=== PATIENT | female | born 1995 | race Two or more races ===

== ENCOUNTER → 2018-04-08 | Outpatient (CLI) | payer OTHER | END | disposition home or self-care (01) | LOC: RAD 10:40 | PROVIDERS: ATTEND Emergency Medicine | DX: R10.9 Unspecified abdominal pain (principal) | CPT/HCPCS: 76705 ==

== ENCOUNTER → 2018-09-22 | Outpatient (CLI) | payer OTHER | END | disposition home or self-care (01) | LOC: CFH 08:28 | PROVIDERS: ATTEND Family Medicine | DX: M79.661 Pain in right lower leg (principal) ==

== ENCOUNTER 2019-01-24 15:29 | Emergency (ER) | payer OTHER ==
[~2019-01-24] VITALS: Ht 160 cm; Wt 116.9 kg
[2019-01-24 16:37] VITALS: BP 111/70
== END 2019-01-24 17:57 | disposition home or self-care (01) ==
LOC: ED 17:51
DX: R07.2 Precordial pain (principal); M79.89 Other specified soft tissue disorders; R11.0 Nausea
CPT/HCPCS: 36415; 71045; 80048; 82040; 84484; 85025; 85379; 93005; 99284

== ENCOUNTER 2019-05-09 08:19 | Outpatient (CLI) | payer OTHER | END 2019-05-09 23:59 | disposition home or self-care (01) | LOC: CFH 08:19 | PROVIDERS: ATTEND Nurse Practitioner Family | DX: G43.909 Migraine, unspecified, not intractable, without status migrainosus (principal) | CPT/HCPCS: 70450 ==

== ENCOUNTER → 2019-08-08 | Outpatient (CLI) | payer OTHER | END | disposition home or self-care (01) | LOC: CFH 13:24 | PROVIDERS: ATTEND Family Medicine | DX: R10.13 Epigastric pain (principal) | CPT/HCPCS: 76700 ==

== ENCOUNTER 2019-09-10 19:48 | Emergency (ER) | payer OTHER ==
[~2019-09-10] VITALS: Ht 160 cm; Wt 112.8 kg
[2019-09-10 19:54] VITALS: BP 130/85
[2019-09-10] MEDS ORDERED: SODIUM CHLORIDE FLUSH 10ML SYR IVF ONE (20:30)
[2019-09-10] MEDS ORDERED: MAALOX/HYOSCYAMINE/LIDOCAINE 45 ML BTL PO ONE (20:30)
[2019-09-10] MEDS ORDERED: MAALOX/HYOSCYAMINE/LIDOCAINE 45 ML BTL ONE (20:44)
[2019-09-10 20:48] LABS: ALANINE AMINOTRANSFERASE 30 U/L (12-78); ALBUMIN 3.3 g/dL (3.4-5.0); ANION GAP 9 mmol/L (5-15); CHLORIDE 108 mmol/L (98-107); CREATININE 0.86 mg/dL (0.55-1.02)
[2019-09-10 20:50] LABS: ALKALINE PHOSPHATASE 77 U/L (45-117); BILIRUBIN,TOTAL 0.4 mg/dL (0.2-1.0); TOTAL PROTEIN 7.3 g/dL (6.4-8.2)
[2019-09-10 20:54] LABS: BASOPHILS # (AUTO) 0.05 x10^3/uL (0-0.1); BASOPHILS % (AUTO) 1 % (0-1); EOSINOPHILS # (AUTO) 0.07 x10^3/uL (0-0.4); EOSINOPHILS % (AUTO) 1 % (1-7); LYMPHOCYTES # (AUTO) 2.56 x10^3/uL (1-3.4); LYMPHOCYTES % (AUTO) 35 % (22-44); MD NO; MEAN CORPUSCULAR HEMOGLOBIN 28.2 pg (27.0-34.8); MEAN CORPUSCULAR HGB CONC 33.3 g/dL (32.4-35.8); MEAN CORPUSCULAR VOLUME 84.6 fL (80-100); MEAN PLATELET VOLUME 8.8 fL (7.4-10.4); MONOCYTES % (AUTO) 8 % (2-9); NEUTROPHILS # (AUTO) 4.05 x10^3/uL (1.8-6.8); NEUTROPHILS % (AUTO) 55 % (42-75); PLATELET COUNT 248 x10^3/uL (130-400); RED BLOOD COUNT 4.83 x10^6/uL (3.82-5.3); RED CELL DISTRIBUTION WIDTH 13.2 % (9.6-15.2)
== END 2019-09-10 21:32 ==
LOC: ED 20:48
DX: K29.00 Acute gastritis without bleeding (principal); K80.20 Calculus of gallbladder without cholecystitis without obstruction; M54.9 Dorsalgia, unspecified; R10.10 Upper abdominal pain, unspecified
CPT/HCPCS: 36415; 76700; 80053; 83690; 85025; 99284

== ENCOUNTER 2019-09-30 21:12 | Emergency (ER) | payer OTHER ==
[~2019-09-30] VITALS: Ht 162.6 cm; Wt 112.0 kg
[2019-09-30] MEDS ORDERED: MORPHINE SULFATE 4 MG/ML, 1ML ONE (21:28)
[2019-09-30] MEDS ORDERED: ONDANSETRON 2MG/ML, 2ML IVPush ONE (21:30)
[2019-09-30] MEDS ORDERED: MORPHINE SULFATE 4 MG/ML, 1ML IVPush PRN (21:30)
[2019-09-30] MEDS ORDERED: SODIUM CHLORIDE FLUSH 10ML SYR IVF ONE (21:30)
[2019-09-30 21:42] LABS: BASOPHILS # (AUTO) 0.05 x10^3/uL (0-0.1); BASOPHILS % (AUTO) 0 % (0-1); EOSINOPHILS # (AUTO) 0.17 x10^3/uL (0-0.4); EOSINOPHILS % (AUTO) 2 % (1-7); LYMPHOCYTES # (AUTO) 3.04 x10^3/uL (1-3.4); LYMPHOCYTES % (AUTO) 26 % (22-44); MD NO; MEAN CORPUSCULAR HEMOGLOBIN 27.6 pg (27.0-34.8); MEAN CORPUSCULAR VOLUME 83.8 fL (80-100); MEAN PLATELET VOLUME 8.3 fL (7.4-10.4); MONOCYTES # (AUTO) 1.05 x10^3/uL (0.2-0.8); MONOCYTES % (AUTO) 9 % (2-9); NEUTROPHILS # (AUTO) 7.38 x10^3/uL (1.8-6.8); NEUTROPHILS % (AUTO) 63 % (42-75); PLATELET COUNT 306 x10^3/uL (130-400); RED BLOOD COUNT 4.84 x10^6/uL (3.82-5.3); RED CELL DISTRIBUTION WIDTH 13.5 % (9.6-15.2)
--- NOTE | 2019-09-30 21:44 | NUR ---
PT TO US AT THIS TIME.
[2019-09-30 21:48] LABS: CULTURE INDICATED? YES; MICROSCOPIC INDICATED
[2019-09-30 21:55] LABS: ALANINE AMINOTRANSFERASE 25 U/L (12-78); ANION GAP 4 mmol/L (5-15); CALCIUM 8.6 mg/dL (8.5-10.1); CHLORIDE 108 mmol/L (98-107); CREATININE 0.76 mg/dL (0.55-1.02)
[2019-09-30 21:59] LABS: ALKALINE PHOSPHATASE 94 U/L (45-117); TOTAL PROTEIN 7.4 g/dL (6.4-8.2)
[2019-09-30 22:00] LABS: BILIRUBIN,TOTAL < 0.1 mg/dL (0.2-1.0)
[2019-09-30 22:57] VITALS: BP 121/63
[2019-10-01] MEDS ORDERED: OMNIPAQUE 350 MG/ML, 100ML BOTTLE ONE (00:39)
== END 2019-09-30 23:54 | disposition home or self-care (01) ==
LOC: ED 21:30
DX: R10.11 Right upper quadrant pain (principal); K80.20 Calculus of gallbladder without cholecystitis without obstruction; K29.00 Acute gastritis without bleeding; R11.0 Nausea
CPT/HCPCS: 36415; 74177; 76700; 80053; 81001; 83690; 84703; 85025; 87086; 96374; 99285; J2270; Q9967

== ENCOUNTER 2019-11-16 11:15 | Outpatient (CLI) | payer OTHER ==
[2019-11-16] MEDS ORDERED: HYDR-3237 PO (12:44)
[2019-11-16] MEDS ORDERED: ERGO500017 PO (12:44)
[2019-11-16] MEDS ORDERED: NAPR-758 PO (12:44)
[2019-11-16] MEDS ORDERED: PANT40TA3 PO (12:44)
== END 2019-11-16 23:59 | disposition home or self-care (01) ==
LOC: STAR 11:15
PROVIDERS: ATTEND Surgery
DX: Z01.818 Encounter for other preprocedural examination (principal); Z11.59 Encounter for screening for other viral diseases
CPT/HCPCS: C9803; U0001

== ENCOUNTER 2019-11-20 09:09 | Day surgery (SDC) | payer OTHER ==
[~2019-11-20] VITALS: Ht 161.3 cm; Wt 112.2 kg
[~2019-11-20 09:09] MED LIST: ERGO500017 PO; HYDR-3237 PO; NAPR-758 PO; PANT40TA3 PO
[2019-11-20] MEDS ORDERED: LIDOCAINE-MPF 1%, 2ML INFIL STA (09:25)
[2019-11-20] MEDS ORDERED: LACTATED RINGERS 1,000 ML IV SCH (09:25)
[2019-11-20] MEDS ORDERED: CHLORHEXIDINE 15 ML UDC MM STA (09:25)
[2019-11-20 09:27] VITALS: BP 113/82
[2019-11-20] MEDS ORDERED: GABAPENTIN 300 MG CAPSULE PO ONE (09:29)
[2019-11-20] MEDS ORDERED: ACETAMINOPHEN 500 MG TABLET PO ONE (09:29)
[2019-11-20] MEDS ORDERED: SCOPOLAMINE 1MG PATCH TD ONE (09:29)
[2019-11-20 10:04] LABS: HCG UR SG 1.026 (1.003-1.030)
[2019-11-20] MEDS ORDERED: FENTANYL PF 250 MCG/5ML ONE (10:30)
[2019-11-20] MEDS ORDERED: CEFOTETAN PMX 2GM/50ML 50 ML ONE (10:30)
[2019-11-20] MEDS ORDERED: MIDAZOLAM 1 MG/ML, 2ML ONE (10:30)
[2019-11-20] MEDS ORDERED: KETOROLAC 30 MG/1 ML ONE (10:31)
[2019-11-20] MEDS ORDERED: GLYCOPYRROLATE 0.2MG/1ML, 5ML ONE (10:33)
[2019-11-20] MEDS ORDERED: ROCURONIUM 10MG/ML,5ML ONE (10:33)
[2019-11-20] MEDS ORDERED: DEXAMETHASONE 4 MG/ML, 1ML ONE (10:33)
[2019-11-20] MEDS ORDERED: ONDANSETRON 2MG/ML, 2ML ONE (10:33)
[2019-11-20] MEDS ORDERED: NEOSTIGMINE 1 MG/ML, 10ML ONE (10:33)
[2019-11-20] MEDS ORDERED: PROPOFOL 10 MG/ML, 20ML ONE (10:33)
[2019-11-20] MEDS ORDERED: LABETALOL 5MG/ML, 20ML IV PRN (11:30)
[2019-11-20] MEDS ORDERED: OXYcodone 5 MG/5 ML ORAL.SOL UDC PO PRN (11:30)
[2019-11-20] MEDS ORDERED: FENTANYL PF 100 MCG/2ML IV PRN (11:30)
[2019-11-20] MEDS ORDERED: hydrALAzine 20 MG/ML, 1ML IV PRN (11:30)
[2019-11-20] MEDS ORDERED: HALOPERIDOL 5 MG/ML IV PRN (11:30)
[2019-11-20] MEDS ORDERED: HYDROmorphone 1 MG/ML, 1ML INJ IVPush PRN (11:30)
[2019-11-20] MEDS ORDERED: morphine SULFATE 10 MG/ML, 1ML IVPush PRN (11:30)
[2019-11-20] MEDS ORDERED: PROMETHAZINE 25 MG/ML, 1ML IVPush PRN (11:30)
[2019-11-20] MEDS ORDERED: BUPIVACAINE/PF-EPI 0.25% 1:200K ONE (11:31)
[2019-11-20] MEDS ORDERED: FENTANYL PF 100 MCG/2ML ONE (11:53)
[2019-11-20] MEDS ORDERED: MEPERIDINE/PF 100 MG/ML ONE (12:25)
[2019-11-20] MEDS ORDERED: OXYcodone 5 MG/5 ML ORAL.SOL UDC ONE (12:25)
[2019-11-20] MEDS: MEPERIDINE/PF 25MG/0.5ML IVPush PRN ×2 (12:28→12:52)
== END 2019-11-20 15:00 | disposition home or self-care (01) ==
LOC: OUT 09:09
PROVIDERS: ATTEND Surgery
DX: K81.1 Chronic cholecystitis (principal); K21.9 Gastro-esophageal reflux disease without esophagitis; F32.9 Major depressive disorder, single episode, unspecified; G43.909 Migraine, unspecified, not intractable, without status migrainosus; Z79.891 Long term (current) use of opiate analgesic; Z79.3 Long term (current) use of hormonal contraceptives; Z79.899 Other long term (current) drug therapy; Z88.8 Allergy status to other drugs, medicaments and biological substances; Z98.890 Other specified postprocedural states; Z83.3 Family history of diabetes mellitus; Z82.49 Family history of ischemic heart disease and other diseases of the circulatory system; Z83.42 Family history of familial hypercholesterolemia
CPT/HCPCS: 47562; 81025; 88304; J1100; J1885; J2175; J2250; J2405; J2704; J2710; J3010; J3490; J7120

== ENCOUNTER 2019-11-23 16:56 | Emergency (ER) | payer OTHER ==
[~2019-11-23] VITALS: Ht 160 cm; Wt 113.9 kg
--- NOTE | 2019-11-23 17:20 | NUR ---
BOBBIN WINDER: PT TO ROOM VIA WHEELCHAIR FROM LOBBY AT THIS TIME. ANNI
--- NOTE | 2019-11-23 17:47 | NUR ---
FIRST CONTACT WITH PT. PT S/P ANDI WEDNESDAY. "TODAY I WOKE UP WITH NUMBNESS RIGHT THIGH AND ALL THE WAY UP INTO MY GROIN" "PAIN WITH WALKING" PT'S AOX4. RESPS EVEN AND UNLABORED. DENIES N/V/D. BP/SPO2 MONITORS IN PLACE. CALL LIGHT WITHIN REACH.
--- NOTE | 2019-11-23 18:43 | NUR ---
pt amb to br and back to room with steady gait.
--- NOTE | 2019-11-23 19:02 | NUR ---
report given to franci masters.
--- NOTE | 2019-11-23 19:04 | NUR ---
REPORT FROM GABI, ASSUMING CARE OF PT
--- NOTE | 2019-11-23 19:20 | NUR ---
US CALLED TO FOLLOW UP ON ORDER AT THIS TIME, THEY STATE THAT THEY WILL DO IT SOON THEY HAVE BEEN SHORT ON [employer].
--- NOTE | 2019-11-23 19:59 | NUR ---
CALLED [facility] [employer] TO INQUIRE ABOUT DELAYED US, REPORTS THEY WILL COME SEE PT.
--- NOTE | 2019-11-23 20:13 | NUR ---
US NOW AT BEDSIDE
[2019-11-23 20:35] VITALS: BP 105/62
--- NOTE | 2019-11-23 20:36 | NUR ---
AT BEDSIDE TO DISCUSS POC WITH PT AT THIS TIME
== END 2019-11-23 21:05 | disposition home or self-care (01) ==
LOC: ED 20:06
DX: R20.2 Paresthesia of skin (principal); M25.551 Pain in right hip; M79.604 Pain in right leg; R10.9 Unspecified abdominal pain; Z90.49 Acquired absence of other specified parts of digestive tract
CPT/HCPCS: 99284